=== PATIENT | male | born 1995 | race Caucasian/White ===

== ENCOUNTER → 2018-09-11 | Outpatient (CLI) | payer OTHER | LOC: ULTRA 13:55 | DX: N50.89 Other specified disorders of the male genital organs (principal) ==

== ENCOUNTER → 2020-05-04 | Outpatient (CLI) | payer OTHER | LOC: ULTRA 08:46 | PROVIDERS: ATTEND Neuromusculoskeletal Medicine & OMM | DX: N50.89 Other specified disorders of the male genital organs (principal) ==

== ENCOUNTER → 2021-01-19 | Outpatient (CLI) | payer OTHER | LOC: RAD 11:43 | PROVIDERS: ATTEND Nurse Practitioner | DX: J34.9 Unspecified disorder of nose and nasal sinuses (principal); R68.84 Jaw pain ==

== ENCOUNTER → 2021-06-17 | Outpatient (CLI) | payer OTHER | LOC: ULTRA 09:54 | PROVIDERS: ATTEND Family Medicine | DX: R22.2 Localized swelling, mass and lump, trunk (principal) ==